=== PATIENT | female | born 1960 | race Caucasian/White ===

== ENCOUNTER 2020-06-13 21:21 | Emergency (ER) | payer OTHER ==
[~2020-06-13] VITALS: Ht 170.2 cm; Wt 86.3 kg
[2020-06-13 21:36] VITALS: BP 150/81
[2020-06-13] MEDS ORDERED: TIZANIDINE HCL2 MG PO (22:31)
--- NOTE | 2020-06-13 22:31 | PHYS DOC ---
Past History Past Medical History: No Pertinent History Past Surgical History: Cholecystectomy, Hysterectomy, Other Additional Past Surgical Histo: Left shoulder Alcohol Use: None General Adult EDM: Chief Complaint: MECHANICAL FALL HPI: HPI: Patient is a [age] year old [sex] who presents with [] Review of Systems: Review of Systems: Constitutional: Denies fever or chills Eyes: Denies change in visual acuity HENT: Denies nasal congestion or sore throat Respiratory: Denies cough or shortness of breath Cardiovascular: Denies chest pain or edema GI: Denies abdominal pain, nausea, vomiting, bloody stools or diarrhea : Denies dysuria Musculoskeletal: Denies back pain or joint pain Integument: Denies rash Neurologic: Denies headache, focal weakness or sensory changes Endocrine: Denies polyuria or polydipsia Lymphatic: Denies swollen glands Psychiatric: Denies depression or anxiety Allergies: Allergies: Allergies Coded Allergies Type Severity Reaction Last Updated Verified Sulfa (Sulfonamide Antibiotics) Allergy Intermediate 06/13/20 Yes codeine Allergy Intermediate 06/13/20 Yes morphine Allergy Intermediate 06/13/20 Yes Physical Exam: PE: Constitutional: Well developed, well nourished, no acute distress, non-toxic appearance. [] HENT: Normocephalic, atraumatic, bilateral external ears normal, oropharynx moist, no oral exudates, nose normal. [] Eyes: PERRLA, EOMI, conjunctiva normal, no discharge. [] Neck: Normal range of motion, no tenderness, supple, no stridor. [] Cardiovascular:Heart rate regular rhythm, no murmur [] Lungs & Thorax: Bilateral breath sounds clear to auscultation [] Abdomen: Bowel sounds normal, soft, no tenderness, no masses, no pulsatile masses. [] Skin: Warm, dry, no erythema, no rash. [] Back: No tenderness, no CVA tenderness. [] Extremities: No tenderness, no cyanosis, no clubbing, ROM intact, no edema. [] Neurologic: Alert and oriented X 3, normal motor function, normal sensory function, no focal deficits noted. [] Psychologic: Affect normal, judgement normal, mood normal. [] Current Patient Data: Vital Signs: Vital Signs Date Time Temp Pulse Resp B/P (MAP) Pulse Ox O2 Delivery O2 Flow Rate FiO2 06/13/20 21:36 97.8 97 16 150/81 (104) 100 Room Air EKG: EKG: [] Radiology/Procedures: Radiology/Procedures: [] Heart Score: Risk Factors: Risk Factors: DM, Current or recent (<one month) smoker, HTN, HLP, family history of CAD, obesity. Risk Scores: Score 0 - 3: 2.5% MACE over next 6 weeks - Discharge Home Score 4 - 6: 20.3% MACE over next 6 weeks - Admit for Clinical Observation Score 7 - 10: 72.7% MACE over next 6 weeks - Early Invasive Strategies Course & Med Decision Making: Course & Med Decision Making Pertinent Labs and Imaging studies reviewed. (See chart for details) [] Dragon Disclaimer: Dragon Disclaimer: This electronic medical record was generated, in whole or in part, using a voice recognition dictation system. Departure Departure: Impression: Primary Impression: Right hip pain Additional Impression: Thoracic back pain Qualified Codes: M54.6 - Pain in thoracic spine Disposition: 01 DC HOME SELF CARE/HOMELESS Condition: STABLE Referrals: PCP,NO (PCP) Patient Instructions: Back Pain, Adult, [id number], Hip Pain, Work-Related Injury-Brief Additional Instructions: Please follow up with your workman's compensation provider for further evaluation and treatment. Use over the counter Tylenol and/or Ibuprofen for pain or discomfort. May take prescribed muscle relaxers as directed for pain. Scripts Tizanidine Hcl (TIZANIDINE HCL) 2 Mg Tablet 2 MG PO PRN Q8HRS PRN for MUSCLE SPASMS, #14 TAB Prov: KENISHA VELAZQUEZ DO 06/13/20 KENISHA VELAZQUEZ DO Jun 13, 2020 22:31
--- NOTE | 2020-06-13 22:45 | RAD ---
EXAM: Frontal pelvis with two-view right hip. HISTORY: Pain after a fall. COMPARISON: None. FINDINGS: No fractures are identified. There is sclerosis along the right superior acetabulum. Subcho ndral cysts along the acetabulum and measures 9 mm. There is mild to moderate superior joint space na rrowing. The joint spaces and alignment of the left hip appear maintained. IMPRESSION: 1. Moderate right hip osteoarthritis. No fracture. Electronically signed by: Stevenson Griggs MD (06/13/2020 10:42 PM) [facility]
== END 2020-06-13 22:40 | disposition home or self-care (01) ==
LOC: ER 21:21
DX: M25.551 Pain in right hip (principal); M54.6 Pain in thoracic spine; M25.512 Pain in left shoulder; Z88.2 Allergy status to sulfonamides; Z88.5 Allergy status to narcotic agent; W01.0XXA Fall on same level from slipping, tripping and stumbling without subsequent striking against object, initial encounter; Y93.89 Activity, other specified; Y92.89 Other specified places as the place of occurrence of the external cause; Y99.8 Other external cause status
CPT/HCPCS: 73502; 99283